=== PATIENT | female | born 1945 | race Caucasian/White ===

== ENCOUNTER → 2023-09-25 14:43 | Outpatient (REF) | payer MEDICARE, OTHER, SELFPAY | LOC: WDC 14:43 | PROVIDERS: ATTENDING PHYSICIAN Obstetrics & Gynecology; FAMILY PHYSICIAN Nurse Practitioner Family | DX: Z12.31 Encounter for screening mammogram for malignant neoplasm of breast (principal) | CPT/HCPCS: 77063; 77067 ==

== ENCOUNTER → 2023-09-28 09:51 | Outpatient (REF) | payer MEDICARE, OTHER, SELFPAY ==
[2023-09-28 10:21] LABS: % Basophils 0.6 % (0-2); % Eosinophils 2.1 % (0-6); % Immature Granulocytes 0.6 % (0-0.5); % Monocytes 8.2 % (1.7-9.3); % Neutrophils 61.5 % (42.2-75.2); Absolute Eosinophils 0.1 10^3/uL (0-0.7); Absolute Lymphocytes 1.8 10^3/uL (1.2-3.4); Absolute Monocytes 0.6 10^3/uL (0.1-0.6); Absolute Neutrophils 4.2 10^3/uL (1.4-6.5); Hematocrit 35.3 % (37.0-47.0); Hemoglobin 12.3 g/dL (12.0-16.0); Mean Corp Hgb Conc. 34.8 g/dL (33.0-37.0); Mean Corpuscular Hgb 30.6 pg (27.0-31.0); Mean Corpuscular Volume 87.8 fL (81.0-99.0); Mean Platelet Volume 9.2 fL (7.4-10.4); Nucleated Red Blood Cells % 0 %; Platelet Count 226 10^3/uL (130-400); Red Blood Cell Count 4.02 10^6/uL (4.20-5.40); Red Cell Dist. Width 14.1 % (11.5-14.5); White Blood Cell Count 6.7 10^3/uL (4.8-10.8)
[2023-09-28 11:10] LABS: ALT (SGPT) 42 U/L (0-35); AST (SGOT) 37 U/L (14-36); Albumin 3.9 g/dl (3.5-5.0); Alkaline Phosphatase 74 U/L (38-126); Blood Urea Nitrogen 18 mg/dl (7-17); Calcium 9.4 mg/dl (8.4-10.2); Carbon Dioxide 28 mmol/L (22-30); Chloride 102 mmol/L (98-107); Glucose 94 mg/dl (70-99); Glycohemoglobin (HgbA1c) 5.7 % (4.0-5.6); HDL Cholesterol 46 mg/dl; LDL Cholesterol, Calculated 66 mg/dl; Magnesium 1.9 mg/dl (1.6-2.3); Potassium 4.3 mmol/L (3.5-5.1); Sodium 133 mmol/L (135-145); Total Cholesterol 136 mg/dl (50-199); Total Protein 6.5 g/dl (6.3-8.2); Triglyceride 124 mg/dl (10-149); Very Low Density Lipoprotein 24 mg/dl (0-30); eGFR > 60.00
[2023-09-28 11:27] LABS: Vitamin D, 25-OH*** 56.1 ng/mL (30-80)
[2023-09-28 11:41] LABS: TSH Reflex To Free T4 2.01 uIU/ml (0.47-4.68)
== END ==
LOC: REG 09:51
PROVIDERS: ATTENDING PHYSICIAN Internal Medicine Cardiovascular Disease; FAMILY PHYSICIAN Nurse Practitioner Family
DX: I10 Essential (primary) hypertension (principal); E78.00 Pure hypercholesterolemia, unspecified; E03.9 Hypothyroidism, unspecified; R73.03 Prediabetes; E55.9 Vitamin D deficiency, unspecified
CPT/HCPCS: 36415; 80053; 80061; 82306; 83036; 83735; 84443; 85025

== ENCOUNTER → 2023-12-20 10:13 | Outpatient (REF) | payer MEDICARE, OTHER, SELFPAY ==
[2023-12-20 11:40] LABS: ALT (SGPT) 22 U/L (0-35); AST (SGOT) 28 U/L (14-36); Albumin 3.9 g/dl (3.5-5.0); Alkaline Phosphatase 72 U/L (38-126); Blood Urea Nitrogen 17 mg/dl (7-17); Calcium 10.1 mg/dl (8.4-10.2); Carbon Dioxide 26 mmol/L (22-30); Chloride 101 mmol/L (98-107); Glucose 89 mg/dl (70-99); Potassium 4.7 mmol/L (3.5-5.1); Sodium 135 mmol/L (135-145); Total Bilirubin 0.7 mg/dl (0.2-1.3); Total Protein 6.5 g/dl (6.3-8.2); eGFR > 60.00
== END ==
LOC: REG 10:13
PROVIDERS: ATTENDING PHYSICIAN Internal Medicine Cardiovascular Disease; FAMILY PHYSICIAN Nurse Practitioner Family
DX: I10 Essential (primary) hypertension (principal); R79.89 Other specified abnormal findings of blood chemistry; E87.1 Hypo-osmolality and hyponatremia
CPT/HCPCS: 36415; 80053

== ENCOUNTER → 2024-05-18 08:26 | Outpatient (REF) | payer MEDICARE, OTHER, SELFPAY ==
[2024-05-18 10:14] LABS: Blood Urea Nitrogen 17 mg/dl (7-17); Calcium 9.7 mg/dl (8.4-10.2); Carbon Dioxide 28 mmol/L (22-30); Chloride 102 mmol/L (98-107); Glucose 93 mg/dl (70-99); Potassium 4.5 mmol/L (3.5-5.1); Sodium 138 mmol/L (135-145); eGFR > 60.00
== END ==
LOC: REG 08:26
PROVIDERS: ATTENDING PHYSICIAN Internal Medicine Cardiovascular Disease; FAMILY PHYSICIAN Nurse Practitioner Family
DX: I10 Essential (primary) hypertension (principal)
CPT/HCPCS: 36415; 80048

== ENCOUNTER → 2024-05-21 10:57 | Outpatient (REF) | payer MEDICARE, OTHER, SELFPAY | LOC: RAD 10:57 | PROVIDERS: ATTENDING PHYSICIAN Nurse Practitioner Family | DX: M79.18 Myalgia, other site (principal) | CPT/HCPCS: 72072 ==

== ENCOUNTER → 2024-10-02 11:09 | Outpatient (REF) | payer MEDICARE, OTHER, SELFPAY | LOC: WDC 11:09 | PROVIDERS: ATTENDING PHYSICIAN Obstetrics & Gynecology; FAMILY PHYSICIAN Nurse Practitioner Family | DX: Z12.31 Encounter for screening mammogram for malignant neoplasm of breast (principal) | CPT/HCPCS: 77063; 77067 ==

== ENCOUNTER → 2025-03-29 10:00 | Outpatient (REF) | payer MEDICARE, OTHER, SELFPAY ==
[2025-03-29 12:04] LABS: Hematocrit 38.9 % (37.0-47.0); Hemoglobin 12.6 g/dL (12.0-16.0); Mean Corp Hgb Conc. 32.4 g/dL (33.0-37.0); Mean Corpuscular Volume 89.6 fL (81.0-99.0); Nucleated Red Blood Cells % 0 %; Platelet Count 206 10^3/uL (130-400); Red Cell Dist. Width 14.6 % (11.5-14.5)
[2025-03-29 12:21] LABS: Urine Character Clear (Clear)
[2025-03-29 12:27] LABS: Blood Urea Nitrogen 20 mg/dl (7-17); Glucose 83 mg/dl (70-99)
[2025-03-29 12:28] LABS: ALT (SGPT) 35 U/L (0-35); AST (SGOT) 28 U/L (14-36); Albumin 4.0 g/dl (3.5-5.0); Alkaline Phosphatase 83 U/L (38-126); Calcium 9.4 mg/dl (8.4-10.2); Carbon Dioxide 26 mmol/L (22-30); Chloride 107 mmol/L (98-107); HDL Cholesterol 57 mg/dl; LDL Cholesterol, Calculated 68 mg/dl; Potassium 4.7 mmol/L (3.5-5.1); Sodium 137 mmol/L (135-145); Total Protein 6.5 g/dl (6.3-8.2); Very Low Density Lipoprotein 17 mg/dl (0-30); eGFR > 60.00
[2025-03-29 12:38] LABS: Urine Red Blood Cell 0-2 /HPF (0-2); Urine Squamous Cell >30 /LPF (Few)
[2025-03-29 13:32] LABS: Glycohemoglobin (HgbA1c) 5.3 % (4.0-5.6)
== END ==
LOC: REG 10:00
PROVIDERS: ATTENDING PHYSICIAN Internal Medicine Cardiovascular Disease; FAMILY PHYSICIAN Internal Medicine
DX: I10 Essential (primary) hypertension (principal); I34.0 Nonrheumatic mitral (valve) insufficiency; E78.00 Pure hypercholesterolemia, unspecified; E03.9 Hypothyroidism, unspecified; R60.0 Localized edema; R73.03 Prediabetes
CPT/HCPCS: 36415; 80053; 80061; 81003; 81015; 83036; 84443; 85025

== ENCOUNTER → 2025-05-27 09:38 | Outpatient (REF) | payer MEDICARE, OTHER, SELFPAY | LOC: RAD 09:38 | PROVIDERS: ATTENDING PHYSICIAN Obstetrics & Gynecology; FAMILY PHYSICIAN Nurse Practitioner Adult Health | DX: Z78.0 Asymptomatic menopausal state (principal) | CPT/HCPCS: 77080 ==

== ENCOUNTER 2025-06-01 08:37 | Outpatient (RCR) | payer MEDICARE, OTHER, SELFPAY | END 2025-06-01 23:59 | disposition home or self-care (01) | LOC: RPT 08:37 | PROVIDERS: ATTENDING PHYSICIAN Nurse Practitioner Adult Health | DX: I89.0 Lymphedema, not elsewhere classified (principal); Z73.6 Limitation of activities due to disability; R26.2 Difficulty in walking, not elsewhere classified | CPT/HCPCS: 97162; 97530; 97760; 97763 ==

== ENCOUNTER 2025-07-06 08:41 | Outpatient (RCR) | payer MEDICARE, OTHER, SELFPAY | END 2025-07-06 23:59 | disposition home or self-care (01) | LOC: RPT 08:41 | PROVIDERS: ATTENDING PHYSICIAN Nurse Practitioner Adult Health | DX: I89.0 Lymphedema, not elsewhere classified (principal); Z73.6 Limitation of activities due to disability; R26.2 Difficulty in walking, not elsewhere classified | CPT/HCPCS: 97530 ==